=== PATIENT | male | born 1940 | race Caucasian/White ===

== ENCOUNTER 2017-10-21 13:38 | Inpatient (IN) | payer MEDICARE, OTHER ==
[~2017-10-21] VITALS: Ht 175.3 cm; Wt 81.2 kg
[2017-10-21] MEDS ORDERED: LORAZEPAM 2 MG/1 ML VIAL IM PRN (14:45)
[2017-10-21] MEDS ORDERED: MIRALAX 17 GM POWD.PACK PO PRN (14:45)
[2017-10-21] MEDS ORDERED: ONDANSETRON 4 MG/2 ML VIAL IM PRN (14:45)
[2017-10-21] MEDS ORDERED: NICOTINE 14 MG/24HR PATCH TD PRN (14:45)
[2017-10-21] MEDS ORDERED: LORAZEPAM 1 MG TABLET PO PRN ×2 (14:45)
[2017-10-21] MEDS ORDERED: MAG HYDROX/AL HYDROX/SIMETH 30 ML LIQUID UDC PO PRN (14:45)
[2017-10-21] MEDS ORDERED: LOPERAMIDE HCL 2 MG CAPSULE PO PRN ×2 (14:45)
[2017-10-21] MEDS ORDERED: THIAMINE HCL 200 MG/2 ML VIAL IM ONE (14:45)
[2017-10-21] MEDS ORDERED: MAGNESIUM HYDROXIDE 30 ML LIQUID UDC PO PRN (14:45)
[2017-10-21] MEDS ORDERED: NICOTINE POLACRILEX 4 MG GUM-PK OF TEN BC PRN (14:45)
[2017-10-21] MEDS ORDERED: ACETAMINOPHEN 325 MG TABLET PO PRN (14:45)
[2017-10-21] MEDS ORDERED: ONDANSETRON ODT 4 MG TAB.RAPDIS SL PRN (14:45)
[2017-10-21] MEDS ORDERED: hydrALAZINE HCL 50 MG TABLET PO PRN (14:45)
[2017-10-21 15:17] LABS: *AMPHETAMINE, URINE NEGATIVE (NEGATIVE); *BARBITURATE, URINE NEGATIVE (NEGATIVE); *CANNABINOID, URINE POSITIVE (NEGATIVE); *COCCAINE, URINE NEGATIVE (NEGATIVE); *OPIATE, URINE POSITIVE (NEGATIVE); *PHENCYCLIDINE SCREEN,URINE NEGATIVE (NEGATIVE)
--- NOTE | 2017-10-21 15:18 | NUR ---
PRE-ADMISSION NOTES RECEIVED PT AT [facility]. PT IS A/O X4, COOPERATIVE, HAS A FRIENDLY DEMEANOR, REPORTS NO S/S OF W/D AT THIS TIME. 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 3 DRINKS PER DAY FOR 10 YEARS. LAST DATE USED WAS YESTERDAY 10/20/17. PT REPORTS HE FIRST STARTED USING WHEN HE WAS 8 YEARS OLD. PT IS AMBULATORY WITHOUT ASSISTANCE. NKA. PMH OF HTN, IRREGULAR HEARTBEAT, INSOMNIA, AND ANXIETY. INITIAL VS WERE BP: 121/64, P: 84, RR: 16 O2 SAT 96%. PT REPORTS HE HAS PAIN IN THE LEFT SHOULDER. EDUCATED PT WITH UNIT RULES. SCDS ARE AT BEDSIDE.
--- NOTE | 2017-10-21 15:45 | NUR ---
ADMISSION NOTES PT IS A 77 Y/O M ADMITTED ON 10/21/17 AND ARRIVED ON THE UNIT AT 1520 FOR ETOH DEPENDENCE. A/O X4, NO SOB, RESPIRATIONS BILATERALLY EQUAL. PT WAS COOPERATIVE AND HAS A BIG SENSE OF HUMOR. PT REPORTS NO S/S OF W/D AT THIS TIME. TREMORS ARE MODERATELY FELT AND SEEN. PT REPORTS HE HAS NOT EXPERIENCED S/S OF ETOH W/D BEFORE AND HAS NOT BEEN TO TREATMENT BEFORE. PT IS THE PRIMARY SOURCE OF INFORMATION AND REPORTS NKA. PT IS AMBULATORY WITHOUT ASSISTANCE. PT REPORTS HAVING AN ADVANCED DIRECTIVE AND REQUESTS TO BE ON FULL CODE. HE STATES HIS CAN PROVIDE COPIES. PT REPORTS THIS IS HIS FIRST TREATMENT AND IS HERE DUE TO THE ENCOURAGEMENT OF HIS TWO SONS AND A DAUGHTER [place]. HE STATES HIS ETOH USE IS NOT A PROBLEM, BUT YESTERDAY HE DOES NOT REMEMBER LAST NIGHTS EVENTS; APPARENTLY HE HAD BAD BEHAVIOR PER SON AND DAUGHTER [place]. PMH OF HTN, HYPERLIPIDEMIA, IRREGULAR HEARTBEAT, INSOMNIA, ANXIETY, DEPRESSION, AND HAS HAD SKIN CANCER, SHINGLES, PERICARDITIS IN THE PAST. INITIAL VS WERE BP: 121/64, P: 84, RR: 16 O2 SAT 96%. CIWA 2. PT REPORTS HE HAS PAIN IN THE LEFT SHOULDER 2/10 PAIN. EKG WAS TAKEN ON SHIFT. PT REPORTS HE HAD A FLU VACCINE IN JUN 2017 AND PNA VACCINE OVER 5 YEARS AGO; REQUESTS TO HAVE IT. PT DENIES SI/HI.PT REPORTS HIS MOTHER HAD A HX OF ETOH ABUSE. PT REPORTS HE SMOKES 14 CIGGARETTES DAILY AND HAD BEEN SMOKING SINCE THE AGE OF 21. SUBSTANCE USE HX: 1. ETOH WINE OR CHAMPAGNE PO AT LEAST 3 DRINKS DAILY (PT STATES HE SOMETIMES DRINKS UP TO 6 DRINKS WHEN HE GOES OUT TO LUNCH OR DINNER) FOR 10 YEARS. LAST USED: 10/20/17 FIRST USED: WHEN PT WAS 8 Y/O. PT SKIN AND BODY CHECK HAS BEEN INSPECTED AND HAS A SCAB ON THE R HAND WHERE HE HAD A BIOSPY OF THE SKIN RECENTLY. OTHERWISE SKIN IS WARM, DRY AND INTACT. PT STATES HE IS 61, WEIGHS 179 LBS. PT IS ON SZ AND FALL PRECAUTIONS. BED IN LOWEST POSITION, SIDE RAILS UP X2. CALL LIGHT WITHIN REACH. INSTRUCTED PT TO USE CALL LIGHT IF NEEDED. WILL CONTINUE TO MONITOR.
[2017-10-21 15:50] LABS: ETHANOL < 3 MG/DL (0-0)
[2017-10-21] MEDS ORDERED: LOSA1TAB39 PO (15:53)
[2017-10-21] MEDS ORDERED: BUPR300T54 PO (15:53)
[2017-10-21] MEDS ORDERED: AMLO5TAB2 PO (15:53)
[2017-10-21] MEDS ORDERED: ATEN25TA PO (15:53)
[2017-10-21] MEDS ORDERED: ATOR10TA PO (15:53)
[2017-10-21] MEDS ORDERED: CITA20TA19 PO (15:53)
[2017-10-21 15:55] LABS: ALANINE AMINOTRANSFERASE 44 U/L (16-63); ALKALINE PHOSPHATASE 70 U/L (50-136); AMYLASE 34 U/L (25-115); ASPARTATE AMINOTRANSFERASE 27 U/L (15-37); BILIRUBIN,TOTAL 0.4 mg/dL (0.2-1.0); CARBON DIOXIDE 33 mmol/L (21-32); CHLORIDE 100 mmol/L (98-107); CREATININE 1.2 mg/dL (0.6-1.3); GLUCOSE 132 mg/dL (74-106); MAGNESIUM 1.9 mg/dL (1.8-2.4); TOTAL PROTEIN, SERUM 7.3 g/dL (6.4-8.2); UREA NITROGEN, BLOOD 24 mg/dL (7-18)
[2017-10-21 16:07] LABS: THYROID STIMULATING HORMONE 0.829 mIU/mL (0.358-3.740)
[2017-10-21 16:08] LABS: BASOPHILS # (AUTO) 0.1 K/uL (0.0-8.0); BASOPHILS % (AUTO) 0.6 % (0.0-2.0); EOSINOPHILS # (AUTO) 0.2 K/uL (0.0-0.7); EOSINOPHILS % (AUTO) 1.6 % (0.0-7.0); HEMATOCRIT 48.7 % (36.7-47.1); HEMOGLOBIN 16.6 g/dL (12.5-16.3); LYMPHOCYTES # (AUTO) 3.1 K/uL (20.0-40.0); LYMPHOCYTES % (AUTO) 24.7 % (20.5-51.5); MEAN CORPUSCULAR HEMOGLOBIN 33.4 uug (23.8-33.4); MEAN CORPUSCULAR HGB CONC 34 g/dL (32.5-36.3); MEAN CORPUSCULAR VOLUME 97.7 fL (73.0-96.2); MONOCYTES # (AUTO) 1.1 K/uL (2.0-10.0); MONOCYTES % (AUTO) 8.7 % (0.0-11.0); NEUTROPHILS # (AUTO) 8.1 K/uL (1.8-8.9); NEUTROPHILS % (AUTO) 64.4 % (38.5-71.5); PLATELET COUNT (AUTO) 207 K/uL (152-348); RED BLOOD CELL COUNT(AUTO) 4.99 MIL/uL (4.06-5.63); WHITE BLOOD COUNT (AUTO) 12.6 K/uL (3.6-10.2)
[2017-10-21 17:00] VITALS: BP 139/93
--- NOTE | 2017-10-21 17:00 | NUR ---
ADVANCED DIRECTIVES PT REPORTED HIS CAN PROVIDE A COPY AND HER NUMBER IS [phone].
[2017-10-21] MEDS ORDERED: POTASSIUM CHLORIDE 20 MEQ TAB.PRT.SR PO ONE (17:15)
[2017-10-21] MEDS: LORAZEPAM 1 MG TABLET PO SCH ×2 (17:18→21:08)
--- NOTE | 2017-10-21 17:18 | NUR ---
ORDERED K-DUR 40 MEQ PO X1 DOSE. ADMINISTERED AND GIVEN.
--- NOTE | 2017-10-21 19:30 | NUR ---
START OF SHIFT Pt is a 77 y/o male admitted to [facility] for ETOH dependency.Pt is A/O X 4,received in a stable condition.Pt is on fall and seizure precautions.No HX of seizures noted.Breathing is even and non labored,no s/s of distress noted.PMH of anxiety,depression,hypertension,hyperlipidemia,irregular heart beat,skin CA,shingles and pericarditis.NKA,regular diet,no c/o pain or distress noted,all safety measures in place per hospital policy,call light within reach,will continue to monitor. Addendum: 10/21/17 at 2032 by LEROY ROLLINS RN LAST CIWA=2.
--- NOTE | 2017-10-21 19:48 | NUR ---
END OF SHIFT PT IS RESTING IN BED, RESPIRATIONS EVEN AND UNLABORED. PT DENIES NAUSEA AND ANXIETY. PT REPORTS PAIN IN THE RIGHT SHOULDER /10. MODERATE TREMORS AND SEEN AND FELT. PT EYES APPEAR TO BE RED. LAST CIWA 2. PT HAS BEEN GIVEN K-DUR POTASSIUM 40 MEQ PO X1 DOSE DURING SHIFT. SZ AND FALL PRECAUTIONS TAKEN. SIDE RAILS UP X2, BED IN LOWEST POSITION. CALL LIGHT WITHIN REACH. WILL GIVE ALL ENDORSEMENT AND PERTINENT DATA TO [employer] DEVELOPER NURSE.
[2017-10-21 20:00] VITALS: BP_SYST 139; BP_SYST 182; BP_DIAS 70; BP_DIAS 93
[2017-10-21] MEDS: ATORVASTATIN 10 MG PO SCH (21:08)
[2017-10-21] MEDS: ATENOLOL 25 MG PO SCH (21:08)
[2017-10-21] MEDS: diphenhydrAMINE 50 MG CAPSULE PO PRN (23:47)
[2017-10-21] MEDS: IBUPROFEN 400 MG TABLET PO PRN (23:47)
--- NOTE | 2017-10-21 23:49 | NUR ---
PRN MOTRIN GIVEN ORDERED FOR C/O LEFT SHOULDER PAIN LEVEL 4/10. PRN BENADRYL GIVEN FOR INSOMNIA.WILL MONITOR FOR EFFECTIVENESS.
[2017-10-22] VITALS: BP 159/95
--- NOTE | 2017-10-22 00:32 | NUR ---
PRN APRESOLINE GIVEN OPRDERSD FOR UR=[phone].WILL MONITOR.
--- NOTE | 2017-10-22 00:50 | NUR ---
PRN F/U PRN MOTRIN EFFECTIVE.PAIN REDUCED TO 1/10. PRN BENADRYL IS EFFECTIVE.PT IS SLEEPING BUT EASILY AROUSABLE.
[2017-10-22 04:00] VITALS: BP 164/79
[2017-10-22] MEDS ORDERED: CLONIDINE HCL 0.1 MG TABLET PO ONE (04:45)
--- NOTE | 2017-10-22 04:50 | NUR ---
B/P = 164/79.ONE TIME ORDER OF CLONIDINE GIVEN PER MD ORDER.WILL MONITOR.
--- NOTE | 2017-10-22 04:59 | NUR ---
PHOEBE F/U FOR APRESOLINE. MEDICATION EFFECTIVE IN LOWERING B/P TO 148/92.WILL CONTINUE TO MONITOR. Addendum: 10/22/17 at 0503 by LEROY ROLLINS RN ENTERED AT WRONG TIME. B/P WAS CHECKED AT 0130.
[2017-10-22] MEDS ORDERED: CLONIDINE HCL 0.1 MG TABLET ONE (05:01)
--- NOTE | 2017-10-22 05:50 | NUR ---
PRN F/U FOR CLONIDINE PRN EFFECTIVE.B/P = 142/81.
--- NOTE | 2017-10-22 06:56 | NUR ---
END OF SHIFT Pt is a 77 y/o male admitted to [facility] for ETOH dependency,also reported taking Tylenol with codeine and Valium off and on.Pt is A/O X 4.Pt is on fall and seizure precautions.No HX of seizures noted.Breathing is even and non labored,no s/s of distress noted.PMH of anxiety,depression,hypertension,hyperlipidemia,irregular heart beat,skin CA,shingles and pericarditis.NKA,regular diet.Pt was given PRN Motrin,Benadryl,Apresoline and Clonidine as ordered x 1 for elevated B/P and was effective.B/P = 142/81 at this time.Pt slept 8 hrs,fluid intake was 500 mls,voided x 1.Last CIWA=2;all safety measures in place per hospital policy,call light within reach,will continue to monitor.
--- NOTE | 2017-10-22 07:40 | NUR ---
START OF SHIFT NOTE Received report from night nurse,77 y ear old male admitted for ETOH dependence. Patient cont with Ativan taper. Per endorsement pt received PRN medications effective per night nurse, last CIWA score was 2, slept for 8 hours. Patient received awake, alert and oriented x4. Patient was educated regarding plan of care for the day and medication regimen. Safety measures in place. call light with in reach. Will continue to monitor.
[2017-10-22 08:00] VITALS: BP 160/74
[2017-10-22] MEDS ORDERED: PATIENT MAY USE OWN MED- MD OK PO SCH (09:00)
[2017-10-22] MEDS ORDERED: TUBERCULIN,PURIF.PROT.DERIV. 5 TU/0.1 ML TEST ID ONE (09:00)
[2017-10-22] MEDS: MULTIVITAMINS,THERAPEUTIC TABLET PO SCH (09:10)
[2017-10-22] MEDS: THIAMINE HCL 100 MG TABLET PO SCH (09:10)
[2017-10-22] MEDS: ASPIRIN 81 MG TAB.CHEW PO SCH (09:10)
[2017-10-22] MEDS: FOLIC ACID 1 MG TABLET PO SCH (09:10)
[2017-10-22] MEDS: LORAZEPAM 1 MG TABLET PO SCH ×3 (09:10→21:50)
[2017-10-22] MEDS: ATENOLOL 25 MG PO SCH ×2 (09:11→21:50)
[2017-10-22] MEDS: HCTZ PO SCH (09:11)
[2017-10-22] MEDS: LOSARTAN PO SCH (09:11)
[2017-10-22 09:56] LABS: BASOPHILS # (AUTO) 0.1 K/uL (0.0-8.0); BASOPHILS % (AUTO) 0.9 % (0.0-2.0); EOSINOPHILS # (AUTO) 0.3 K/uL (0.0-0.7); EOSINOPHILS % (AUTO) 2.9 % (0.0-7.0); HEMATOCRIT 48.3 % (36.7-47.1); HEMOGLOBIN 16.6 g/dL (12.5-16.3); LYMPHOCYTES # (AUTO) 2.9 K/uL (20.0-40.0); LYMPHOCYTES % (AUTO) 30.5 % (20.5-51.5); MEAN CORPUSCULAR HEMOGLOBIN 33.7 uug (23.8-33.4); MEAN CORPUSCULAR HGB CONC 35 g/dL (32.5-36.3); MEAN CORPUSCULAR VOLUME 97.7 fL (73.0-96.2); MONOCYTES # (AUTO) 0.9 K/uL (2.0-10.0); MONOCYTES % (AUTO) 9.8 % (0.0-11.0); NEUTROPHILS # (AUTO) 5.4 K/uL (1.8-8.9); NEUTROPHILS % (AUTO) 55.9 % (38.5-71.5); PLATELET COUNT (AUTO) 187 K/uL (152-348); RED BLOOD CELL COUNT(AUTO) 4.94 MIL/uL (4.06-5.63); WHITE BLOOD COUNT (AUTO) 9.6 K/uL (3.6-10.2)
[2017-10-22 09:57] LABS: CARBON DIOXIDE 34 mmol/L (21-32); CHLORIDE 101 mmol/L (98-107); CREATININE 1.1 mg/dL (0.6-1.3); GLUCOSE 171 mg/dL (74-106); MAGNESIUM 1.9 mg/dL (1.8-2.4); PHOSPHOROUS 3.2 mg/dL (2.5-4.9); POTASSIUM 2.9 mmol/L (3.5-5.1); UREA NITROGEN, BLOOD 16 mg/dL (7-18)
[2017-10-22 10:08] LABS: THYROID STIMULATING HORMONE 1.373 mIU/mL (0.358-3.740)
[2017-10-22] MEDS: CITALOPRAM 20 MG TABLET PO SCH (10:20)
[2017-10-22] MEDS: buPROPion XL 150 MG TAB.SR.24H PO SCH (10:28)
[2017-10-22 12:00] VITALS: BP 135/95
[2017-10-22] MEDS ORDERED: KETOROLAC TROMETHAMINE 30 MG INJ IM PRN (12:00)
[2017-10-22] MEDS ORDERED: METHYL SALICYLATE/MENTHOL CREAM 28 GM TUBE TOP PRN (12:00)
[2017-10-22] MEDS ORDERED: POTASSIUM CHLORIDE 20 MEQ TAB.PRT.SR PO ONE ×2 (14:15→21:00)
--- NOTE | 2017-10-22 14:20 | NUR ---
LOW POTASSIUM LEVEL Patient's noted with low potassium level 2.9L, replaced it with 20MEQ K-DUR as ordered.
[2017-10-22] MEDS ORDERED: AMLODIPINE 10 MG TABLET PO ONE (15:00)
--- NOTE | 2017-10-22 15:11 | NUR ---
Therapist prompted client about group times. Client stated he will attend the afternoon group.
[2017-10-22] MEDS: KETOROLAC TROMETHAMINE 15 MG INJ IM PRN (15:35)
--- NOTE | 2017-10-22 15:38 | NUR ---
PRN Toradol Pt c/o left shoulder pain 06/08. PRN Toradol administered.
[2017-10-22 16:00] VITALS: BP 138/77
--- NOTE | 2017-10-22 16:08 | NUR ---
TORADOL REASSESSMENT Patient reported Toradol was effective in alleviating his shoulder pain 2/10.
--- NOTE | 2017-10-22 19:12 | NUR ---
END OF SHIFT NOTE Patient cont with Ativan taper tolerated well. Patient received PRN Toradol IM noted to be effective. Patient did not attend any groups and activities, stayed in his room most of the day. Educated pt to attend groups and activities to learn new coping skills with good verbal understanding. Patient seen by psychiatrist with new order of Celexa and Wellbutrin medication given as ordered tolerated well. Vital signs WNL. Last CIWA score was 5 @1600. Safety measures in place. Patient endorsed to night nurse in stable condition.
[2017-10-22 20:00] VITALS: BP 138/78
--- NOTE | 2017-10-22 20:00 | NUR ---
START OF SHIFT NOTE Received a 77 y ear old male admitted on 10/21/2017 for ETOH dependence. Px has PMHx of HTN, anxiety, depression, hyperlipidemia and arrhythmia. Patient is on 5 day Ativan taper. Px has NKA, on regular diet and Full Code. Patient received awake, alert and oriented x4. During the rounds at 2000, px reported mild anxiety and wanted to take his medications just before 2200. Safety measures in place. Bed on lowest position, side rails up padded 2x. Call light within reach. We'll continue to monitor.
[2017-10-22] MEDS: ATORVASTATIN 10 MG PO SCH (21:50)
[2017-10-23] VITALS: BP 170/91
[2017-10-23] MEDS: hydrALAZINE HCL 50 MG TABLET PO PRN ×2 (00:28→17:29)
--- NOTE | 2017-10-23 00:28 | NUR ---
PRN Apresoline Px's BP= 170/91. Apresoline 50 mg/tab, 1.5 tabs given PO as PRN med. We'll continue to monitor.
--- NOTE | 2017-10-23 01:30 | NUR ---
reassessment of BP Px BP= 148/75 as reassessed after an hour of administration of Apresoline 75 mg. We'll continue to monitor.
[2017-10-23] MEDS: diphenhydrAMINE 50 MG CAPSULE PO PRN ×2 (03:40→21:55)
--- NOTE | 2017-10-23 03:40 | NUR ---
PRN Benadryl Px requested a pill to help him go back to sleep. Benadryl 50 mg/cap, 1 cap given PO as PRN med. We'll continue to monitor.
[2017-10-23 04:00] VITALS: BP 142/84
[2017-10-23 06:56] LABS: CARBON DIOXIDE 30 mmol/L (21-32); CHLORIDE 100 mmol/L (98-107); CREATININE 1.2 mg/dL (0.6-1.3); GLUCOSE 153 mg/dL (74-106); MAGNESIUM 1.8 mg/dL (1.8-2.4); POTASSIUM 2.9 mmol/L (3.5-5.1); UREA NITROGEN, BLOOD 20 mg/dL (7-18)
--- NOTE | 2017-10-23 07:19 | NUR ---
END OF SHIFT NOTE 77 year old male admitted on 10/21/2017 for ETOH dependence. Px has PMHx of HTN, anxiety, depression, hyperlipidemia and arrhythmia. Patient is on 5 day Ativan taper. Px has NKA, on regular diet and Full Code. Patient received awake, alert and oriented x4. During the shift, at 0028, Px's BP= 170/91. Apresoline 50 mg/tab, 1.5 tabs given PO as PRN med. Latest BP= 142/84 at 0400. At 0340, Px requested a pill to help him go back to sleep. Benadryl 50 mg/cap, 1 cap given PO as PRN med. Oral intake of 900 ml, voided 2x, BM 2x. Slept for 2.5 hours. Safety measures in place. Bed on lowest position, side rails up padded 2x. Call light within reach. We'll continue to monitor.
--- NOTE | 2017-10-23 07:30 | NUR ---
START OF SHIFT Pt 77 y/o male admitted for etoh dependence. Pt received awake in bed in room. Pt alert and oriented to name, place, and time. Perrla. Skin warm and slightly moist to touch. Respirations even and unlabored. Bilateral hand tremors noted. Pt appears slightly anxious this morning. It was reported that pt slept for 2.5 hours last night. Bed on lowest position with side rails x2 up for safety. Call light within reach. No distress noted at this time.
[2017-10-23 08:00] VITALS: BP 140/75
[2017-10-23] MEDS: buPROPion XL 150 MG TAB.SR.24H PO SCH (08:24)
[2017-10-23] MEDS: ASPIRIN 81 MG TAB.CHEW PO SCH (08:24)
[2017-10-23] MEDS: THIAMINE HCL 100 MG TABLET PO SCH (08:24)
[2017-10-23] MEDS: MULTIVITAMINS,THERAPEUTIC TABLET PO SCH (08:24)
[2017-10-23] MEDS: FOLIC ACID 1 MG TABLET PO SCH (08:24)
[2017-10-23] MEDS: CITALOPRAM 20 MG TABLET PO SCH (08:24)
[2017-10-23] MEDS: LOSARTAN PO SCH (08:25)
[2017-10-23] MEDS: ATENOLOL 25 MG PO SCH ×2 (08:25→21:47)
[2017-10-23] MEDS: HCTZ PO SCH (08:25)
[2017-10-23] MEDS: PATIENT MAY USE OWN MED- MD OK PO SCH (08:25)
[2017-10-23] MEDS ORDERED: LORAZEPAM 1 MG TABLET PO SCH (09:00)
[2017-10-23] MEDS: KETOROLAC TROMETHAMINE 15 MG INJ IM PRN (09:19)
--- NOTE | 2017-10-23 09:23 | NUR ---
PRN pt with c/o left shoudler pain aching 05/08. Toradol IM prn per MD order given and tolerated well.
[2017-10-23] MEDS ORDERED: MAGNESIUM OXIDE 400 MG TABLET PO ONE (10:00)
[2017-10-23] MEDS ORDERED: POTASSIUM CHLORIDE 20 MEQ TAB.PRT.SR PO ONE ×2 (10:00→21:00)
--- NOTE | 2017-10-23 10:23 | NUR ---
PRN JOSE D Pt states pain 01/06. Pt observed walking around the unit.
--- NOTE | 2017-10-23 11:45 | NUR ---
Therapist prompted client about group times. Client stated he would attend all groups today.
[2017-10-23 12:00] VITALS: BP 132/72
[2017-10-23] MEDS: OSELTAMIVIR PHOSPHATE 75 MG CAPSULE PO SCH (13:20)
[2017-10-23] MEDS: LORAZEPAM 1 MG TABLET PO SCH ×2 (14:09→21:47)
[2017-10-23 16:00] VITALS: BP 154/76
--- NOTE | 2017-10-23 17:29 | NUR ---
PRN Pt with bp= 154/76. Hydralazine po prn per MD order given and tolerated well.
--- NOTE | 2017-10-23 18:29 | NUR ---
PRN EVAL Pt with ga=399/74
--- NOTE | 2017-10-23 18:37 | NUR ---
END OF SHIFT Pt 77 y/o male admitted for etoh dependence. Pt alert and oriented to name, place, and time. Perrla. Skin warm and slightly moist to touch. Respirations even and unlabored. Bilateral hand tremors noted. Pt with periods of anxiety this morning. Pt mostly observed in room this morning, but did attend group activity. Pt was seen by MD today. Pt medication compliant and tolerated well. No ASE noted. Bed on lowest position with side rails x2 up for safety. Call light within reach. No distress noted at this time.
--- NOTE | 2017-10-23 19:30 | NUR ---
START OF SHIFT NOTE Received a 77 year old male admitted on 10/21/2017 for ETOH dependence. Px has PMHx of HTN, anxiety, depression, hyperlipidemia and arrhythmia. Patient is on 5 day Ativan taper. Px has NKA, on regular diet and Full Code. Patient received awake, alert and oriented x4. During the rounds at 1930, px reported mild anxiety. Safety measures in place. Bed on lowest position, side rails up padded x2. Call light within reach. We'll continue to monitor.
[2017-10-23 20:00] VITALS: BP 129/81
[2017-10-23] MEDS: ATORVASTATIN 10 MG PO SCH (21:47)
[2017-10-23] MEDS: IBUPROFEN 400 MG TABLET PO PRN (21:55)
--- NOTE | 2017-10-23 21:55 | NUR ---
PRN meds Px complained of 3/10 left pain shoulder and wanted Benadryl to help him sleep tonight. Motrin 400 mg/tab, 1 tab and Benadryl 50 mg/cap, 1 cap given PO as PRN meds. We'll continue to monitor.
[2017-10-24] VITALS: BP 126/79
[2017-10-24 04:00] VITALS: BP 132/83
--- NOTE | 2017-10-24 04:00 | NUR ---
CIWA deferred CIWA deferred at 0000 and 0400 due to the px is asleep, to assess if the px is awake per doctors order. We'll continue to monitor.
--- NOTE | 2017-10-24 07:07 | NUR ---
END OF SHIFT NOTE 77 year old male admitted on 10/21/2017 for ETOH dependence. Px has PMHx of HTN, anxiety, depression, hyperlipidemia and arrhythmia. Patient is on 5 day Ativan taper. Px has NKA, on regular diet and Full Code. Patient received awake, alert and oriented x4. During the shift, Px complained of 3/10 left pain shoulder and wanted Benadryl to help him sleep tonight. Motrin 400 mg/tab, 1 tab and Benadryl 50 mg/cap, 1 cap given PO as PRN meds. Oral intake of 700 ml, voided 2x, no BM. Slept for 5 hours[address] Safety measures in place. Bed on lowest position, side rails up padded x2. Call light within reach. We'll continue to monitor.
--- NOTE | 2017-10-24 07:26 | NUR ---
Start of Shift Notes/Tylenol 650 mg PO given: Received patient in his room. Awake, alert and oriented x 4. Verbally responsive. Able to make needs known. Respirations even and unlabored. No SOB noted. Skin warm and dry to touch. Abdomen soft and non-distended. BS (+) in all 4 quadrants. No complains of N/V/D or abdominal discomfort noted. Bladder non-distended. No complains of dysuria noted. Voids independently. Ambulatory ad eve with steady gait. Noted with complain of 4/10 left shoulder pain, requested for Tylenol. Non-pharmacological interventions provided but ineffective. Medicated patient with Tylenol 650 mg PO as ordered. Effectiveness to be followed up after 1 hour. Educated patient on her current plan of care and her medication regimen. Encouraged oral fluid intake and encouraged group participation to learn new skills to prevent relapse.
[2017-10-24 08:00] VITALS: BP 132/80
[2017-10-24] MEDS: ASPIRIN 81 MG TAB.CHEW PO SCH (08:24)
[2017-10-24] MEDS: PATIENT MAY USE OWN MED- MD OK PO SCH (08:24)
[2017-10-24] MEDS: ATENOLOL 25 MG PO SCH ×2 (08:24→20:34)
[2017-10-24] MEDS: MULTIVITAMINS,THERAPEUTIC TABLET PO SCH (08:24)
[2017-10-24] MEDS: buPROPion XL 150 MG TAB.SR.24H PO SCH (08:24)
[2017-10-24] MEDS: THIAMINE HCL 100 MG TABLET PO SCH (08:24)
[2017-10-24] MEDS: LOSARTAN POTASSIUM 50 MG TABLET PO SCH (08:25)
[2017-10-24] MEDS: OSELTAMIVIR PHOSPHATE 75 MG CAPSULE PO SCH (08:25)
[2017-10-24] MEDS: CITALOPRAM 20 MG TABLET PO SCH (08:25)
[2017-10-24] MEDS: FOLIC ACID 1 MG TABLET PO SCH (08:26)
[2017-10-24] MEDS: LORAZEPAM 1 MG TABLET PO SCH ×2 (08:26→20:33)
[2017-10-24 08:36] LABS: CARBON DIOXIDE 31 mmol/L (21-32); CHLORIDE 104 mmol/L (98-107); CREATININE 1.1 mg/dL (0.6-1.3); GLUCOSE 131 mg/dL (74-106); MAGNESIUM 1.9 mg/dL (1.8-2.4); POTASSIUM 3.3 mmol/L (3.5-5.1); UREA NITROGEN, BLOOD 18 mg/dL (7-18)
--- NOTE | 2017-10-24 09:59 | NUR ---
New orders: Labs MD made aware of patient's K level of 3.3L and Mag level of 1.9. Will replace as ordered.
[2017-10-24] MEDS ORDERED: MAGNESIUM OXIDE 400 MG TABLET PO ONE (10:00)
[2017-10-24] MEDS ORDERED: POTASSIUM CHLORIDE 20 MEQ TAB.PRT.SR PO ONE (10:00)
[2017-10-24 12:00] VITALS: BP 129/72
--- NOTE | 2017-10-24 15:00 | NUR ---
Transfer of Care: Care transferred to receiving nurse. All pertinent information discussed including Dx, code status, PRNs given, taper orders, and VS.
--- NOTE | 2017-10-24 15:08 | NUR ---
Nursing notes: assume pt's care report received pt in room no distress.
[2017-10-24 16:50] VITALS: BP 110/71
--- NOTE | 2017-10-24 17:59 | NUR ---
END NURSING NOTES: PT AT [facility] AT THIS TIME, DENIES ANY DISCOMFORT, COMPLIENT WITH MEDS AND ATTENDED SOME GROUPS TODAY, AMBULATORY CIWA 3, NO TREMORS NOTED, WILL CONTINUE SAME TX.
[2017-10-24 20:00] VITALS: BP 149/91
--- NOTE | 2017-10-24 20:00 | NUR ---
START OF SHIFT Pt is a 77 y/o male admitted to [facility] for ETOH dependency. Pt is A/O X 4.Pt is on fall and seizure precautions.No HX of seizures noted.Breathing is even and non labored,no s/s of distress noted.PMH of anxiety,depression,hypertension,hyperlipidemia,irregular heart beat,skin CA,shingles and pericarditis.NKA,regular diet.Pt received in room,lying in bed with eyes closed,arousable on approach;all safety measures in place per hospital policy,call light within reach,will continue to monitor.
[2017-10-24] MEDS: diphenhydrAMINE 50 MG CAPSULE PO PRN (20:33)
[2017-10-24] MEDS: IBUPROFEN 400 MG TABLET PO PRN (20:33)
[2017-10-24] MEDS: ATORVASTATIN 10 MG PO SCH (20:35)
--- NOTE | 2017-10-24 20:40 | NUR ---
PRN MOTRIN GIVEN ORDERED FOR C/O LEFT SHOULDER PAIN 02/06,PRN BENADRYL GIVEN FOR C/O INSOMNIA.WILL MONITOR FOR EFFECTIVENESS.
[2017-10-24] MEDS ORDERED: POTASSIUM CHLORIDE 10 MEQ CAPSULE.SA PO ONE (21:00)
--- NOTE | 2017-10-24 21:40 | NUR ---
PRN F/U SHOULDER PAIN DECREASED TO 1/10.PT STATED HE IS GETTING READY TO SLEEP.
[2017-10-25] VITALS: BP 155/95
[2017-10-25] MEDS: hydrALAZINE HCL 50 MG TABLET PO PRN (01:39)
--- NOTE | 2017-10-25 01:40 | NUR ---
PRN APRESOLINE GIVEN ORDERED FOR B/P 155/95.
--- NOTE | 2017-10-25 02:40 | NUR ---
PRN F/U B/P= 145/88.
--- NOTE | 2017-10-25 04:00 | NUR ---
V/S refused/CIWA deferred Pt refused V/S.CIWA deferred due to the pt being asleep.Will continue to monitor.
--- NOTE | 2017-10-25 06:33 | NUR ---
END OF SHIFT Pt is a 77 y/o male admitted to [facility] for ETOH dependency. Pt is A/O X 4.Pt is on fall and seizure precautions.No HX of seizures noted.Breathing is even and non labored,no s/s of distress noted.PMH of anxiety,depression,hypertension,hyperlipidemia,irregular heart beat,skin CA,shingles and pericarditis.NKA,regular diet.Pt slept 5 hrs;fluid intake was 595 mls,voided x 3,b/m x 1.PRN Motrin,Benadryl and Apresoline were given and effective. Last CIWA=2.All safety measures in place per hospital policy,call light within reach,will continue to monitor.
--- NOTE | 2017-10-25 07:30 | NUR ---
Start of shift note; Received report from night nurse. Patient is a 77 year old male admitted on 10/21/17 for ETOH/Benzodiazepine dependence. Patient was placed on a 5 day Ativan taper, no adverse reactions noted. Patient reported history of hypertension, anxiety, depression, hyperlipidemia, pericarditis and irregular heartbeat. Patient is on fall and seizure precaution. All safety measures secured. Patient had an uneventful night. Will continue to monitor patient.
[2017-10-25 08:00] VITALS: BP 128/69
[2017-10-25 08:16] LABS: CARBON DIOXIDE 29 mmol/L (21-32); CHLORIDE 105 mmol/L (98-107); GLUCOSE 190 mg/dL (74-106); MAGNESIUM 1.8 mg/dL (1.8-2.4); UREA NITROGEN, BLOOD 19 mg/dL (7-18)
[2017-10-25] MEDS: FOLIC ACID 1 MG TABLET PO SCH (08:22)
[2017-10-25] MEDS: CITALOPRAM 20 MG TABLET PO SCH (08:22)
[2017-10-25] MEDS: ATENOLOL 25 MG PO SCH ×2 (08:22→20:55)
[2017-10-25] MEDS: PATIENT MAY USE OWN MED- MD OK PO SCH (08:22)
[2017-10-25] MEDS: LOSARTAN POTASSIUM 50 MG TABLET PO SCH (08:22)
[2017-10-25] MEDS: THIAMINE HCL 100 MG TABLET PO SCH (08:22)
[2017-10-25] MEDS: OSELTAMIVIR PHOSPHATE 75 MG CAPSULE PO SCH (08:22)
[2017-10-25] MEDS: MULTIVITAMINS,THERAPEUTIC TABLET PO SCH (08:23)
[2017-10-25] MEDS: ASPIRIN 81 MG TAB.CHEW PO SCH (08:23)
[2017-10-25] MEDS ORDERED: LORAZEPAM 1 MG TABLET PO SCH (09:00)
[2017-10-25] MEDS: IBUPROFEN 400 MG TABLET PO PRN ×2 (09:22→20:55)
[2017-10-25] MEDS: buPROPion XL 150 MG TAB.SR.24H PO SCH (09:22)
--- NOTE | 2017-10-25 09:22 | NUR ---
PRN medication; Patient is complaining of left shoulder pain, PRN Motrin 400mg PO given and Bengay given for left shoulder pain. Will continue to monitor patient for effectiveness of medication.
[2017-10-25] MEDS ORDERED: TRAZODONE 50 MG TABLET PO PRN (10:15)
--- NOTE | 2017-10-25 10:23 | NUR ---
Re-assessment; Patient denies pain at this time. PRN medications noted to be effective.
[2017-10-25] MEDS ORDERED: ATOR10TA PO (11:28)
[2017-10-25] MEDS ORDERED: ATEN25TA PO (11:28)
[2017-10-25] MEDS ORDERED: LOSA50TA3 PO (11:28)
[2017-10-25] MEDS ORDERED: AMLO5TAB2 PO (11:28)
[2017-10-25] MEDS ORDERED: ASPI81TA31 PO (11:28)
[2017-10-25] MEDS ORDERED: MAGNESIUM OXIDE 400 MG TABLET PO ONE (11:30)
[2017-10-25 12:00] VITALS: BP 130/65
[2017-10-25] MEDS ORDERED: POTASSIUM CHLORIDE 20 MEQ TAB.PRT.SR PO ONE ×2 (12:00→21:00)
--- NOTE | 2017-10-25 12:00 | NUR ---
Supplement; ordered Magnesium and Potassium for supplement. Will continue to monitor patient.
--- NOTE | 2017-10-25 15:00 | NUR ---
THerapist prompted client to attend group. Client agreed.
[2017-10-25 16:00] VITALS: BP 130/65
--- NOTE | 2017-10-25 18:50 | NUR ---
End of shift note; Patient is AOX4. Patient is a 77 year old male admitted on 10/21/17 for ETOH/Benzodiazepine dependence. Patient was placed on a 5 day Ativan taper, no adverse reactions noted. Patient reported history of hypertension, anxiety, depression, hyperlipidemia, pericarditis and irregular heartbeat. Patient is on fall and seizure precaution. All safety measures secured. Patient remained compliant with treatment plan and medication regime. Met all needs.
--- NOTE | 2017-10-25 19:45 | NUR ---
START OF SHIFT Received report from day shift nurse. Pt is attending a group meeting. He is a 77 yo male admitted to [facility] on 10/21 for ETOH and BZD dependence. He is A&O and ambulatory. NKA, full code status, on a regular diet. PMH of HTN, hyperlipidemia, pericarditis, irregular heartbeat, skin CA, shingles, anxiety, and depression. On admission he reported drinking wine or champagne 3 or more drinks per day, valium 5 tabs 2-3 times per week, and Tylenol with codeine off and on. 5 day Ativan taper completed and he is scheduled for discharge tomorrow. He is observed with mild tremors. No other s/s of withdrawal. Fall and seizure precautions in place. Bed is down with call light in reach.
[2017-10-25 20:00] VITALS: BP 133/79
[2017-10-25] MEDS: ATORVASTATIN 10 MG PO SCH (20:55)
--- NOTE | 2017-10-25 20:56 | NUR ---
PRN Motrin and Trazodone Pt reports left shoulder pain 3/10 and inability to sleep. PRN Motrin and Trazodone administered.
--- NOTE | 2017-10-25 21:56 | NUR ---
PRN Motrin and Trazodone reassessment PRN Motrin and Trazodone effective. Pt is lying in bed resting with eyes closed. Respirations even and unlabored. Safety measures in place.
[2017-10-25 22:20] VITALS: BP 116/82
[2017-10-26] VITALS: BP 118/79
[2017-10-26] MEDS: IBUPROFEN 400 MG TABLET PO PRN (01:18)
--- NOTE | 2017-10-26 01:19 | NUR ---
PRN Motrin Pt reports left shoulder pain returned and is 4/10. PRN Motrin administered.
--- NOTE | 2017-10-26 02:20 | NUR ---
PRN Motrin reassessment PRN Motrin effective. Pt reports left shoulder pain is reduced to 2/10.
--- NOTE | 2017-10-26 04:00 | NUR ---
0400 Vitals refused/CIWA deferred Pt refused to be woken for 0400 vitals. He is lying in bed resting with eyes closed. Respirations even and unlabored. CIWA ordered Q4HWA. Safety measures in place.
--- NOTE | 2017-10-26 07:14 | NUR ---
END OF SHIFT Report provided to day shift nurse. Pt is lying in bed resting. He is a 77 yo male admitted to [facility] on 10/21 for ETOH and BZD dependence. He is A&O and ambulatory. NKA, full code status, on a regular diet. PMH of HTN, hyperlipidemia, pericarditis, irregular heartbeat, skin CA, shingles, anxiety, and depression. On admission he reported drinking wine or champagne 3 or more drinks per day, valium 5 tabs 2-3 times per week, and Tylenol with codeine off and on. 5 day Ativan taper completed and he is scheduled for discharge today. Pt was having left shoulder pain. PRN Motrin x2 and Trazodone administered. Last CIWA 1. He drank 1210mL and slept for 4 hours. Fall and seizure precautions in place. Bed is down with call light in reach.
--- NOTE | 2017-10-26 07:15 | NUR ---
Start of Shift Notes/Tylenol 650 mg PO given: Received patient in his room. Awake, alert and oriented x 4. Verbally responsive. Able to make needs known. Respirations even and unlabored. No SOB noted. Skin warm and dry to touch. Abdomen soft and non-distended. BS (+) in all 4 quadrants. No complains of N/V/D or abdominal discomfort noted. Bladder non-distended. No complains of dysuria noted. Voids independently. Ambulatory ad eve with steady gait. Patient completed his Ativan taper successfully and will be discharging today. Educated patient on the discharge process, patient verbalized good understanding. All needs met and attended. Will continue to monitor. Addendum: 10/26/17 at 0926 by BRITANY FUNG LVN Error in charting. Tylenol not given
[2017-10-26 08:00] VITALS: BP 125/71
[2017-10-26] MEDS: ATENOLOL 25 MG PO SCH (08:46)
[2017-10-26] MEDS: OSELTAMIVIR PHOSPHATE 75 MG CAPSULE PO SCH (08:46)
[2017-10-26] MEDS: PATIENT MAY USE OWN MED- MD OK PO SCH (08:46)
[2017-10-26] MEDS: THIAMINE HCL 100 MG TABLET PO SCH (08:47)
[2017-10-26] MEDS: MULTIVITAMINS,THERAPEUTIC TABLET PO SCH (08:47)
[2017-10-26] MEDS: FOLIC ACID 1 MG TABLET PO SCH (08:47)
[2017-10-26] MEDS: buPROPion XL 150 MG TAB.SR.24H PO SCH (08:47)
[2017-10-26] MEDS: CITALOPRAM 20 MG TABLET PO SCH (08:47)
[2017-10-26 08:48] VITALS: BP 125/71
[2017-10-26] MEDS: LOSARTAN POTASSIUM 50 MG TABLET PO SCH (08:48)
[2017-10-26] MEDS: ASPIRIN 81 MG TAB.CHEW PO SCH (08:48)
--- NOTE | 2017-10-26 09:06 | NUR ---
Discharged: Patient escorted off the unit at this time with all his belongings, valuables and medication. Patient education provided regarding his discharge instructions, and prescription. Patient verbalized good undestanding. PRESSURE CONTROL SUPERVISOR cabinet checked. Cassette checked. VS stable. CIWA 0.
== END 2017-10-26 09:06 | disposition home or self-care (01) | DRG 895 ==
LOC: SRC 13:38
PROVIDERS: ADMIT Internal Medicine; ATTEND Internal Medicine
PROC: HZ2ZZZZ Detoxification Services for Substance Abuse Treatment (ICD-10-PCS; principal; 2017-10-21)
PROC: HZ41ZZZ Group Counseling for Substance Abuse Treatment, Behavioral (ICD-10-PCS; 2017-10-23)
PROC: HZ31ZZZ Individual Counseling for Substance Abuse Treatment, Behavioral (ICD-10-PCS; 2017-10-23)
DX: F10.230 Alcohol dependence with withdrawal, uncomplicated (principal); E87.3 Alkalosis; I48.0 Paroxysmal atrial fibrillation; E83.42 Hypomagnesemia; F33.1 Major depressive disorder, recurrent, moderate; E11.9 Type 2 diabetes mellitus without complications; E86.0 Dehydration; D72.829 Elevated white blood cell count, unspecified; E78.5 Hyperlipidemia, unspecified; E87.6 Hypokalemia; F11.90 Opioid use, unspecified, uncomplicated; F17.210 Nicotine dependence, cigarettes, uncomplicated; Y90.0 Blood alcohol level of less than 20 mg/100 ml; G47.30 Sleep apnea, unspecified; G47.00 Insomnia, unspecified; Z81.1 Family history of alcohol abuse and dependence; Z80.9 Family history of malignant neoplasm, unspecified; F41.9 Anxiety disorder, unspecified; F13.90 Sedative, hypnotic, or anxiolytic use, unspecified, uncomplicated; F12.90 Cannabis use, unspecified, uncomplicated; Z82.49 Family history of ischemic heart disease and other diseases of the circulatory system; Z79.899 Other long term (current) drug therapy; G89.29 Other chronic pain; I10 Essential (primary) hypertension; F14.10 Cocaine abuse, uncomplicated; F15.10 Other stimulant abuse, uncomplicated; S43.402A Unspecified sprain of left shoulder joint, initial encounter; X58.XXXA Exposure to other specified factors, initial encounter; Y92.89 Other specified places as the place of occurrence of the external cause
CPT/HCPCS: 36415; 70030-TC; 73030; 80307; 80346; 80349; 80361; 83735; 84100; 84443; 85025; 86580; 86592; 86705; 86803; 87340; 87806; 93005; A4663; G0480; J1885; J3411; Q0163